=== PATIENT | male | born 1960 | race Caucasian/White ===

== ENCOUNTER 2021-05-01 18:58 | Emergency (ER) | payer OTHER, SELFPAY ==
[2021-05-01 19:35] VITALS: BP 134/80; PULSE 58; RESP 16; TEMP 36.6; O2SAT 95; BMI 26.8
[2021-05-01] MEDS: Fluorescein Sodium STRIP 1 STRIP EYE-BOTH (20:26)
[2021-05-01] MEDS: Tetracaine HCl/PF 0.5% Oph Sol 4 ML DROPS 3 DROP EYE-RIGHT (20:26)
--- NOTE | 2021-05-01 20:48 | ED.EYEPROB ---
HPI - Eye Problem General Chief complaint: Eye Problems Stated complaint: eye pain Time Seen by Provider: 05/01/21 20:15 History of Present Illness HPI Narrative: Patient complains of right eye discomfort and foreign body sensation after he was working on the ceiling and some debris fell into his eye, no vision loss no photophobia no discharge from high Related Data Allergies Allergy/AdvReac Type Severity Reaction Status Date / Time No Known Allergies Allergy Verified 05/01/21 19:35 Review of Systems Review of Systems: Positive for foreign body sensation in the right eye Negatives are no vision loss no vision change no discharge from eye no photophobia pain is mild no headache no lacerations Yes all other systems are reviewed and are negative PMFSH Past Medical History Source: nursing notes reviewed Social History Social History Advance Directives: No Physical Exam Vital Signs: Vital Signs: Last Vital Signs Temp 97.8 F 05/01/21 19:35 Pulse 58 05/01/21 19:35 Resp 16 05/01/21 19:35 BP 134/80 05/01/21 19:35 Pulse Ox 95 05/01/21 19:35 Body Mass Index 26.8 General appearance no acute distress Head is nose followed a dramatic Eyes pupils equal round reactive to light Extraocular motions are intact The right eye has no obvious foreign body, the upper and lower lids were flipped back, staining with fluorescein did not reveal any corneal abrasion Visual acuity was 2020 bilateral The neck is supple Respiratory no distress Extremities full range of motion x4 Skin no rash Course Course Course Narrative: Before I did my fluorescein exam the patient was irrigating his eye with a saline solution he had from the pharmacy and he felt the SPECT moving now has no foreign body sensation so he himself removed his own foreign body Staining after he did that did not reveal any foreign body or corneal abrasion Discharge Plan Discharge Clinical Impression: Foreign body in eye Patient Disposition: Home, Self-Care Additional Instructions: You most likely remove the foreign body when you irrigated the eye with her saline solution No further treatment needed Follow with eye doctor for any further problems or return to ER any time for pain vision loss any worse condition or any concerns Referrals: Scott Redman [Physician] - 2 days
== END 2021-05-01 21:18 | disposition home or self-care (01) ==
PROVIDERS: Emergency Provider Emergency Medicine; PCP Internal Medicine
DX: T15.91XA Foreign body on external eye, part unspecified, right eye, initial encounter (principal); X58.XXXA Exposure to other specified factors, initial encounter; Y93.9 Activity, unspecified; Y92.9 Unspecified place or not applicable; Y99.0 Civilian activity done for income or pay
CPT/HCPCS: 99283; 99284